=== PATIENT | male | born 1935 | race Caucasian/White ===

== ENCOUNTER 2017-03-31 09:27 | Emergency (ER) | payer MEDICARE ==
[~2017-03-31] VITALS: Ht 175.3 cm; Wt 78.9 kg
[~2017-03-31 09:27] MED LIST: ASPI81CH PO; B-121000 MC2 PO; CHOL10002 PO; Carbidopa-Levo1 EAC1 PO; FINA5 PO; GABA100 PO; GABA600 PO; LEVSOD75 PO; LEVSOD88 PO; MELA3 PO; PRED5 PO; Prinivil10 MG PO; Requip0.5 MG PO; SENN187 PO; TADA10TA PO; TAMS.4ER PO; Ultram50 MG PO; Viagra100 MG PO
[2017-03-31 10:15] LABS: BASOPHILS ABSOLUTE AUTO 0.03 K/mm3 (0.00-0.23); BASOPHILS PERCENT AUTO 0 % (0-2); EOSINOPHILS ABSOLUTE AUTO 0.15 K/mm3 (0.00-0.68); EOSINOPHILS PERCENT AUTO 1 % (0-6); Hematocrit 38.6 % (37.0-53.0); Hemoglobin 12.8 g/dL (13.5-17.5); IMMATURE GRAN ABSOLUTE AUTO 0.06 K/mm3 (0.00-0.10); IMMATURE GRAN PERCENT AUTO 0 % (0-1); LYMPHOCYTES ABSOLUTE AUTO 2.11 K/mm3 (0.84-5.20); LYMPHOCYTES PERCENT AUTO 15 % (21-46); MONOCYTES ABSOLUTE AUTO 1.14 K/mm3 (0.16-1.47); MONOCYTES PERCENT AUTO 8 % (4-13); Mean Corpuscular HGB 29.8 pg (26.0-34.0); Mean Corpuscular HGB Conc 33.2 g/dL (31.5-36.5); Mean Corpuscular Volume 90 fL (80-100); Mean Platelet Volume 11.8 fL (9.1-12.4); NEUTROPHILS ABSOLUTE AUTO 10.57 K/mm3 (1.96-9.15); NEUTROPHILS PERCENT AUTO 75 % (41-73); Platelet Count 177 K/mm3 (150-400); RDW Coefficient Variation 14.5 % (11.7-14.2); Red Blood Cell Count 4.29 M/mm3 (4.30-5.90); White Blood Cell Count 14.06 K/mm3 (4.00-11.30)
[2017-03-31 10:33] LABS: Alanine Aminotransfer (ALT/SGP 16 U/L (12-78); Albumin, Blood 2.5 g/dL (3.4-5.0); Albumin/Globulin Ratio 0.6 (0.8-1.8); Alk Phos 77 U/L (50-136); Anion Gap 8 mmol/L (6-16); Aspartate Aminotrans (AST/SGOT 14 U/L (12-37); Bilirubin, Total 0.4 mg/dL (0.1-1.0); Blood Urea Nitrogen 17 mg/dL (8-24); Bun/Creatinine Ratio 14.2 (12.0-20.0); CO2, Blood 24 mmol/L (21-32); Calcium, Blood 8.7 mg/dL (8.5-10.1); Chloride, Blood 104 mmol/L (98-108); Globulin, Blood 4.3 g/dL (2.2-4.0); Glomerular Filtration Rate >60 (60-); Glucose, Blood 138 mg/dL (70-99); Potassium, Blood 3.6 mmol/L (3.5-5.5); Sodium, Blood 136 mmol/L (136-145); Total Protein, Blood 6.8 g/dL (6.4-8.2)
[2017-03-31 11:51] LABS: Troponin I <0.015 ng/mL (0.000-0.040)
[2017-03-31] MEDS ORDERED: LEVFLO500 PO (12:52)
[2017-03-31] MEDS ORDERED: PROM25 PO (12:53)
== END 2017-03-31 13:49 | disposition home or self-care (01) ==
LOC: ER 09:27
PROVIDERS: Emergency Medicine
DX: J18.9 Pneumonia, unspecified organism (principal); R10.9 Unspecified abdominal pain; R11.2 Nausea with vomiting, unspecified; Z79.899 Other long term (current) drug therapy; Z79.52 Long term (current) use of systemic steroids; Z79.82 Long term (current) use of aspirin
CPT/HCPCS: 36415; 71046; 80053; 83690; 84484; 85025; 93005; 93010; 96361; 96365; 99283; J0696; J7030

== ENCOUNTER 2018-10-03 14:41 | Observation (INO) | payer MEDICARE ==
[~2018-10-03] VITALS: Ht 170.2 cm; Wt 78.3 kg
[~2018-10-03 14:41] MED LIST changes: +LEVFLO500 PO; -LEVSOD88 PO; +PROM25 PO; +Synthroid88 MCG PO
[2018-10-03 15:07] LABS: BASOPHILS ABSOLUTE AUTO 0.05 K/mm3 (0.00-0.23); BASOPHILS PERCENT AUTO 1 % (0-2); EOSINOPHILS PERCENT AUTO 3 % (0-6); Hemoglobin 12.8 g/dL (13.5-17.5); IMMATURE GRAN ABSOLUTE AUTO 0.03 K/mm3 (0.00-0.10); IMMATURE GRAN PERCENT AUTO 0 % (0-1); LYMPHOCYTES ABSOLUTE AUTO 2.36 K/mm3 (0.84-5.20); LYMPHOCYTES PERCENT AUTO 25 % (21-46); MONOCYTES ABSOLUTE AUTO 0.79 K/mm3 (0.16-1.47); MONOCYTES PERCENT AUTO 8 % (4-13); Mean Corpuscular HGB 31.1 pg (26.0-34.0); Mean Corpuscular HGB Conc 32.8 g/dL (31.5-36.5); Mean Corpuscular Volume 95 fL (80-100); Mean Platelet Volume 12.3 fL (9.1-12.4); NEUTROPHILS ABSOLUTE AUTO 5.97 K/mm3 (1.96-9.15); NEUTROPHILS PERCENT AUTO 63 % (41-73); Platelet Count 170 K/mm3 (150-400); RDW Coefficient Variation 12.7 % (11.7-14.2); RDW Standard Deviation 44.5 fL (35.1-46.3); Red Blood Cell Count 4.11 M/mm3 (4.30-5.90)
[2018-10-03] MEDS ORDERED: Hytrin2 MG PO (15:20)
[2018-10-03] MEDS ORDERED: LIDO700A20 TOP (15:20)
[2018-10-03] MEDS ORDERED: SILD50TA PO (15:21)
[2018-10-03] MEDS ORDERED: Ropinirole HCl1 MG PO (15:22)
[2018-10-03] MEDS ORDERED: CLON.5 PO (15:22)
[2018-10-03 15:27] LABS: Albumin, Blood 3.4 g/dL (3.4-5.0); Albumin/Globulin Ratio 1.1 (0.8-1.8); Bilirubin, Total 0.2 mg/dL (0.1-1.0); Bun/Creatinine Ratio 19.4 (12.0-20.0); Calcium, Blood 8.6 mg/dL (8.5-10.1); Creatinine, Blood 1.44 mg/dL (0.60-1.20); Globulin, Blood 3.1 g/dL (2.2-4.0); Potassium, Blood 4.4 mmol/L (3.5-5.5); Total Protein, Blood 6.5 g/dL (6.4-8.2)
[2018-10-03] MEDS ORDERED: MUSE500 MCG UR (16:00)
[2018-10-03] MEDS ORDERED: GLUC500 PO (16:10)
[2018-10-03 16:27] LABS: Source, Urine Clean Catch
[2018-10-03 16:37] LABS: Bilirubin, Urine Neg (Neg); Blood, Urine Neg (Neg); Glucose Qualitative, Urine Neg (Neg); Ketones, Urine Neg (Neg); Leukocyte Esterase, Urine 1+ (Neg); Nitrite, Urine Neg (Neg); Protein, Urine Neg (Neg); Specific Gravity, Urine 1.015 (1.003-1.022); Urobilinogen, Urine NORM (Normal)
[2018-10-03 16:43] LABS: Appearance, Urine Hazy (Clear); Color, Urine Yellow (P-Yellow)
[2018-10-03 16:46] LABS: Bacteria Few /hpf; Mucus Light (0-Heavy); Red Blood Cells, Urine 0-2 /hpf (0-2); Squamous Epithelial Cells Not Seen /hpf (Few); White Blood Cells, Urine 0-2 /hpf (0-5)
--- NOTE | 2018-10-04 02:47 | NUR ---
ASSUMED CARE OF PATIENT AT APPROXIMATELY 2054 FROM ED JACK MARTÍNEZ. PATIENT ARRIVED TO UNIT VIA STRETCHER; TRANSFER FROM ED TO PCU INDEPENDENTLY; PATIENT REPORTS "I DONT KNOW WHY I AM EVEN HERE"; BUT LAUGHS AND REPORTS HIS MADE HIM COME INTO THE HOSPITAL. PATIENT ALERT AND ORIENTED X4. PATIENT DENIES PAIN, NUMBNESS, TINGLING, DIZZINESS AND NAUSESA. PATIENT USES URINAL IN BED. PATIENT BEDREST FOR NOW; ECHO IN AM. ADMISSION COMPLETE. NSR W/ PACS ON TELE; OXYGEN SATURATION ABOVE 90% ON ROOM AIR. LR INFUSING PER ORDER INTO PIV. SLEEPING IN RECLINER BEDSIDE. PATIENT CURRENTLY RESTING IN BED; CALL LIGHT IN REACH; BED IN LOWEST POSISTION; WILL CONTINUE TO MONITOR AND ASSESS UNTIL END OF SHIFT.
[2018-10-04 04:35] LABS: Anion Gap 5 mmol/L (6-16); Blood Urea Nitrogen 22 mg/dL (8-24); Bun/Creatinine Ratio 20.2 (12.0-20.0); CO2, Blood 25 mmol/L (21-32); Calcium, Blood 8.1 mg/dL (8.5-10.1); Chloride, Blood 113 mmol/L (98-108); Creatinine, Blood 1.09 mg/dL (0.60-1.20); Glomerular Filtration Rate >60 (60-); Glucose, Blood 98 mg/dL (70-99); Potassium, Blood 4.2 mmol/L (3.5-5.5); Sodium, Blood 143 mmol/L (136-145)
--- NOTE | 2018-10-04 06:22 | NUR ---
NO ACUTE CHANGES TO REPORT. PATIENT SLEPT ABOUT SEVEN HOURS LAST NIGHT. VSS. WILL CONTINUE TO MONITOR AND ASSESS UNTIL END OF SHIFT.
--- NOTE | 2018-10-04 10:41 | NUR ---
echocardiogram completed
--- NOTE | 2018-10-04 15:42 | NUR ---
DISCHARGE PT EDUCATED ON AND RECEIVED PRINTED DISCHARGE INSTRUCTIONS AND VERBALIZED AN UNDERSTANDING. NO NEW RX. IV DC'D. PT REPORTS HAVING A FOLLOW UP SCHEDULED WITH PCP THIS WEEK. PT LEFT WITH ALL PERSONAL BELONGINGS WITH AT SIDE.
== END 2018-10-04 15:41 | disposition home or self-care (01) ==
LOC: ER 14:41 → ERHOLD 14:42 → PCU 20:45
PROVIDERS: Physician Assistant; ADMIT Internal Medicine
DX: I95.9 Hypotension, unspecified (principal); N17.9 Acute kidney failure, unspecified; T46.4X5A Adverse effect of angiotensin-converting-enzyme inhibitors, initial encounter; E03.9 Hypothyroidism, unspecified; N40.0 Benign prostatic hyperplasia without lower urinary tract symptoms; G25.81 Restless legs syndrome; R01.1 Cardiac murmur, unspecified; I08.0 Rheumatic disorders of both mitral and aortic valves; Z79.899 Other long term (current) drug therapy; Z79.82 Long term (current) use of aspirin; Z79.52 Long term (current) use of systemic steroids
CPT/HCPCS: 36415; 71046; 80048; 80053; 81001; 83036; 83605; 83880; 84484; 85025; 87086; 93005; 93010; 93306; 96360; 96361; 96372; 99285-25; G0378; J1650; J7030; J7120

== ENCOUNTER 2020-09-03 07:19 | Emergency (ER) | payer MEDICARE ==
[~2020-09-03] VITALS: Ht 172.7 cm; Wt 73.9 kg
[~2020-09-03 07:19] MED LIST changes: +CLON.5 PO; +GLUC500 PO; +Hytrin2 MG PO; +LIDO700A20 TOP; +MUSE500 MCG UR; +Ropinirole HCl1 MG PO; +SILD50TA PO
== END 2020-09-03 09:55 | disposition home or self-care (01) ==
LOC: ER 07:19
DX: K43.6 Other and unspecified ventral hernia with obstruction, without gangrene (principal); Z79.52 Long term (current) use of systemic steroids; Z79.899 Other long term (current) drug therapy
CPT/HCPCS: 76857; 99284-25

== ENCOUNTER 2023-03-25 17:33 | Inpatient (IN) | payer MEDICARE ==
[~2023-03-25] VITALS: Ht 180.3 cm; Wt 84.8 kg
[2023-03-25 18:38] LABS: BASOPHILS ABSOLUTE AUTO 0.04 K/mm3 (0.00-0.23); BASOPHILS PERCENT AUTO 1 % (0-2); EOSINOPHILS ABSOLUTE AUTO 0.01 K/mm3 (0.00-0.68); EOSINOPHILS PERCENT AUTO 0 % (0-6); Hematocrit 39.7 % (37.0-53.0); Hemoglobin 13.7 g/dL (13.5-17.5); IMMATURE GRAN ABSOLUTE AUTO 0.04 K/mm3 (0.00-0.10); IMMATURE GRAN PERCENT AUTO 1 % (0-1); LYMPHOCYTES ABSOLUTE AUTO 0.62 K/mm3 (0.84-5.20); LYMPHOCYTES PERCENT AUTO 8 % (21-46); MONOCYTES ABSOLUTE AUTO 0.71 K/mm3 (0.16-1.47); MONOCYTES PERCENT AUTO 9 % (4-13); Mean Corpuscular HGB 31.4 pg (26.0-34.0); Mean Corpuscular HGB Conc 34.5 g/dL (31.5-36.5); Mean Corpuscular Volume 91 fL (80-100); Mean Platelet Volume 12.1 fL (9.1-12.4); NEUTROPHILS ABSOLUTE AUTO 6.58 K/mm3 (1.96-9.15); NEUTROPHILS PERCENT AUTO 82 % (41-73); Platelet Count 144 K/mm3 (150-400); RDW Coefficient Variation 13.1 % (11.7-14.2); RDW Standard Deviation 43.7 fL (35.1-46.3); Red Blood Cell Count 4.36 M/mm3 (4.30-5.90)
[2023-03-25 19:01] LABS: Albumin, Blood 3.3 g/dL (3.4-5.0); Albumin/Globulin Ratio 0.9 (0.8-1.8); Bilirubin, Total 0.4 mg/dL (0.1-1.0); Bun/Creatinine Ratio 13.6 (12.0-20.0); Calcium, Blood 8.2 mg/dL (8.5-10.1); Creatinine, Blood 1.25 mg/dL (0.60-1.20); Globulin, Blood 3.7 g/dL (2.2-4.0); Potassium, Blood 4.1 mmol/L (3.5-5.5)
[2023-03-25 19:36] LABS: Influenza B, PCR NEGATIVE (NEGATIVE); Resp Syncytial Virus, PCR NEGATIVE (NEGATIVE); SARS-Cov-2 (COVID-19) PCR, MMC NEGATIVE (NEGATIVE)
[2023-03-25 19:49] LABS: Influenza A, PCR POSITIVE (NEGATIVE)
[2023-03-25 22:44] LABS: Anti-Xa UFH, PHA Monitoring <0.10 IU/mL; International Normalized Ratio 1.08; Prothrombin Time Results 11.3 Sec (9.7-11.5)
[2023-03-25 22:47] VITALS: BP 124/63
[2023-03-25 23:00] VITALS: BP 117/60
[2023-03-26] VITALS (34 sets, daily range): BP systolic 83–151; BP diastolic 43–107
[2023-03-26 02:21] LABS: Hematocrit 43.4 % (37.0-53.0); Hemoglobin 14.5 g/dL (13.5-17.5); Mean Corpuscular HGB 31.3 pg (26.0-34.0); Mean Corpuscular HGB Conc 33.4 g/dL (31.5-36.5); Mean Corpuscular Volume 94 fL (80-100); Mean Platelet Volume 12.5 fL (9.1-12.4); Platelet Count 144 K/mm3 (150-400); RDW Coefficient Variation 13.4 % (11.7-14.2); Red Blood Cell Count 4.63 M/mm3 (4.30-5.90); White Blood Cell Count 12.19 K/mm3 (4.00-11.30)
[2023-03-26 02:24] LABS: Base Excess Venous -2.9 mmol/L; Bicarbonate Venous 21.5 mmol/L (24.0-30.0); pH Blood Venous 7.31 (7.34-7.37)
[2023-03-26 02:53] LABS: Bun/Creatinine Ratio 14.6 (12.0-20.0); Creatinine, Blood 1.37 mg/dL (0.60-1.20); Potassium, Blood 4.3 mmol/L (3.5-5.5)
--- NOTE | 2023-03-26 06:33 | NUR ---
Admit/ End of shift note. Pt arrived from the ED into PCU19. Pt was oriented to room and call light system. On arrival to the unit Pt was on 3L. At approx 0230, Pt was having increase WOB, RR 30's, requiring O2 increase. RT was requested. RT performed some NT suction which seemed to help manage some of the secretions. Hour long neb was given which also seemed to help open up. PCU and ICU charge at bedside to help with interventions. MDs were called to the bedside for additional orders. CXR, EKG, additional labs completed. BiPAP was placed. IV lasix given x1 with fair output. Pt has remained on the BiPAP since respiratory episode. BP on the softer side, pressures cycling regularly. Hep gtt infusing. Trops continue to be trended. Pt currently denies CP. Pt has been NPO since midnight for possible heart cath. Pt is able to make needs known, call light is within reach. was phoned during respiratory episode, message left.
--- NOTE | 2023-03-26 07:59 | NUR ---
Dr. Washington here, pt signed consent form for angiogram. It is on the front of the chart. Pt is still on bipap. NPO for possible angiogram today.
--- NOTE | 2023-03-26 08:01 | NUR ---
Notified pharmacist Katie that the heparin gtt is still off due to possible angiogram.
--- NOTE | 2023-03-26 09:30 | NUR ---
Pt taken down to heart center for angiogram.
--- NOTE | 2023-03-26 09:48 | NUR ---
Call to pt's Margret to give her update on pt's condition. Pt is still in heart center. She is coming in to the hospital this morning.
--- NOTE | 2023-03-26 10:13 | NUR ---
Pt's and son are in the unit; waiting in the hallway. Updated them on pt's procedure and expectations following the angiogram.
--- NOTE | 2023-03-26 10:25 | NUR ---
Deepika report from Rashard Nicholson RN from [facility]. The pt is returning to [facility] now.
--- NOTE | 2023-03-26 10:32 | NUR ---
Dr. Washington here talking with pt's and son in the hallway.
--- NOTE | 2023-03-26 12:19 | NUR ---
Notified Dr. Washington of pt's conversion to afib , rate 103-110, BP stable, and no dyspnea. Pt is tolerating off bipap presently to eat lunch, on 4 l/min n.c. delivery. New order received for metoprolol succinate, d/c'd the metoprolol tartrate per Dr. Washington.
--- NOTE | 2023-03-26 13:36 | NUR ---
2 CC AIR FROM TR BAND AT THIS TIME.
--- NOTE | 2023-03-26 14:01 | NUR ---
Additional 3 cc air removed from TR band. Right radial site remains without bleeding, swelling, nor s/s hematoma. Pt denies any pain/discomfort in the right upper extremity. He is having RLS symptoms, but ordered glucosamine was admininstered, and hoping for some relief. Vital signs are stable. Pt remains in atrial fibrillation, rate 90s-115 bpm.
--- NOTE | 2023-03-26 15:14 | NUR ---
Restarted heparin gtt at 12 u/kg/hour per Dana Nicholson RPh. TR band fully deflated.
--- NOTE | 2023-03-26 15:19 | NUR ---
Pt has no relief from RLS with 500 mg glucosamine. Message left for Dr. Murrieta; pt says that he takes 0.5 mg of pramipexole also for relief at home.
--- NOTE | 2023-03-26 16:19 | NUR ---
TR band is fully recovered and the right wrist site has a very small flat purple bruise at the insertion point. TR band removed, site cleansed with rubbing alcohol and sterile tegederm placed over it. White immobilizer board placed back on the wrist; pt reminded of the activity restrictions on the wrist. He converted back to sinus rhythm. Vital signs are stable, and he denies any symptomts except for feeling a little like he can't catch his breath, but that it is much better than this morning. He does not have any visible respiratory distress nor dyspnea. RR 14/min, spo2 96% on 3 l/min at rest. He did have some diaphorsis, but nothing else. He is getting a sponge bath now for comfort. Reported this to Dr. Washington. Plan for NPO after midnight for angiogram with Dr. Washington in the morning.
[2023-03-27] VITALS (13 sets, daily range): BP systolic 108–137; BP diastolic 60–116
[2023-03-27 04:55] LABS: BASOPHILS ABSOLUTE AUTO 0.02 K/mm3 (0.00-0.23); BASOPHILS PERCENT AUTO 0 % (0-2); EOSINOPHILS PERCENT AUTO 0 % (0-6); Hematocrit 38.9 % (37.0-53.0); Hemoglobin 13.2 g/dL (13.5-17.5); IMMATURE GRAN PERCENT AUTO 1 % (0-1); LYMPHOCYTES ABSOLUTE AUTO 1.11 K/mm3 (0.84-5.20); LYMPHOCYTES PERCENT AUTO 6 % (21-46); MONOCYTES ABSOLUTE AUTO 0.72 K/mm3 (0.16-1.47); MONOCYTES PERCENT AUTO 4 % (4-13); Mean Corpuscular HGB 31.4 pg (26.0-34.0); Mean Corpuscular HGB Conc 33.9 g/dL (31.5-36.5); Mean Corpuscular Volume 92 fL (80-100); Mean Platelet Volume 12.6 fL (9.1-12.4); NEUTROPHILS ABSOLUTE AUTO 15.71 K/mm3 (1.96-9.15); NEUTROPHILS PERCENT AUTO 89 % (41-73); Platelet Count 125 K/mm3 (150-400); RDW Coefficient Variation 13.6 % (11.7-14.2); RDW Standard Deviation 46.2 fL (35.1-46.3); Red Blood Cell Count 4.21 M/mm3 (4.30-5.90); White Blood Cell Count 17.66 K/mm3 (4.00-11.30)
--- NOTE | 2023-03-27 05:24 | NUR ---
END OF SHIFT NOTE: PT REMAINS ALERT, ORIENTED X4. ABLE TO CALL APPROPRIATELY AND COMMUNICATE NEEDS W/ STAFF. HR CONVERTED FROM AFIB TO SINUS AT APPROX 2050 ON 03/26. HR 60-70'S FOLLOWING CONVERSION. REPEAT EKG COMPLETED FOLLOWING CONVERSION SHOWING SINUS W/ PVC'S. SBP 110-130'S, PT DENIES CHEST PAIN/PRESSURE. SPO2 >92% ON 3L VIA NC. BIPAP AT BEDSIDE BUT NOT USED OVERNIGHT. COUGH NONPRODUCTIVE. PT ABLE TO VOID IN URINAL INDEPENDENTLY, UP TO BSC W/ 1P SBA. MULTIPLE BM'S OVERNIGHT. ANGIO SITE TO R WRIST REMAINS INTACT W/ MINIMAL BLEEDING NOTED. SMALL BRUISE REMAINS IN PLACE AT INSERTION SITE W/O WORSENING OVERNIGHT. WHITE IMMOBILIZER BOARD IN PLACE. PT HAS REMAINED NPO SINCE 0000 ANTICIPATING REPEAT ANGIO THIS AM. HEPARIN GTT INFUSING AT 10 U/KG/HR, MANAGED BY PHARMACY. NO OTHER NEEDS AT THIS TIME. PT IS RESTING IN BED W/ CALL LIGHT IN REACH. BED ALARM ON FOR PT SAFETY. WILL REPORT TO ONCOMING RN.
[2023-03-27 05:29] LABS: Albumin/Globulin Ratio 0.8 (0.8-1.8); Bilirubin, Total 0.3 mg/dL (0.1-1.0); Bun/Creatinine Ratio 27.1 (12.0-20.0); Calcium, Blood 8.2 mg/dL (8.5-10.1); Creatinine, Blood 1.44 mg/dL (0.60-1.20); Globulin, Blood 3.9 g/dL (2.2-4.0); Magnesium, Blood 2.2 mg/dL (1.6-2.4); Potassium, Blood 3.9 mmol/L (3.5-5.5); Total Protein, Blood 6.9 g/dL (6.4-8.2)
--- NOTE | 2023-03-27 08:46 | NUR ---
Verified heparin gtt at the bedside. pt is alert, oriented and on 2 l/min O2. sinus rhythm, 63 bpm with PACs. He reports no discomfort, no pain, except for his restless legs which are "acting up". encouraged him to stand at the bedside or sit on side of bed to march his legs and knees for relief. He usually walks around at home for relief. Call to his Margret this morning at pt's request to update her; no answer, so will attempt to call again later.
--- NOTE | 2023-03-27 09:41 | NUR ---
Call to Margret to give her an update on her 's condition. Plan for angiogram later today.
[2023-03-27 11:10] LABS: HEMOGLOBIN A1C 6.4 % (4.8-5.6)
--- NOTE | 2023-03-27 11:22 | NUR ---
PT IS IN ANGIOGRAM.
--- NOTE | 2023-03-27 13:34 | NUR ---
1310 RETURNED from heart center angiogram. Alert, awake and oriented, pleasantly conversant. No pain/discomfort. States he feels like his breathing is getting better, but not quite back to normal. Given lunch tray and water to drink. Encouraging fluid intake.
--- NOTE | 2023-03-27 14:48 | NUR ---
Pt sitting up in bed, finished lunch and is talking with his daughters in the room. Right radial arterial access site it WNL. TR band is in place, fully inflated. He denies any pain/discomfort. Right hand fingers are pink, capillary refill is brisk, and he denies any numbness/tingling/pain in the right hand/arm. Vital signs have been stable and the pt has remained in sinus rhythm.
--- NOTE | 2023-03-27 16:18 | NUR ---
Noted bruising and soft area of swelling proximal to the TR band, about 3-4 cm area. Arm elevated and pressure applied. Pressure dressing applied with gauze and coban and pt instructed to keep the arm elevated on 2 pillows. He denies any pain on the right upper extremity.
--- NOTE | 2023-03-27 16:21 | NUR ---
oxygen delivery 1 l/min and spo2 97%. O2 turned off.
--- NOTE | 2023-03-27 17:40 | NUR ---
TR band fully deflated. No further evidence of bleeding. Bruising adjacent to TR band is has not grown in size. Pt states tender to touch, but otherwise it is WNL. He is keeping the right arm elevated on 2 pillows.
--- NOTE | 2023-03-27 17:42 | NUR ---
Pt is weaned off of oxygen. spo2 96% on room air at rest.
--- NOTE | 2023-03-27 18:43 | NUR ---
TR Band removed. ARea cleaned with rubbing alcohol, covered with sterile tegederm and immobilizer board placed on wrist. Education to patient to continue activity restrictions to prevent complications from bleeding of the site. Explained that he needs to keep the immobilizer board on for 24 hours and after that he can shower, remove the dressing, and wash the area with soap and water. PT verbalized understanding.
[2023-03-28 00:20] VITALS: BP 133/78
[2023-03-28 03:13] VITALS: BP 142/77
[2023-03-28 04:53] LABS: BASOPHILS ABSOLUTE AUTO 0.01 K/mm3 (0.00-0.23); BASOPHILS PERCENT AUTO 0 % (0-2); EOSINOPHILS PERCENT AUTO 0 % (0-6); Hematocrit 38.5 % (37.0-53.0); Hemoglobin 12.9 g/dL (13.5-17.5); IMMATURE GRAN ABSOLUTE AUTO 0.09 K/mm3 (0.00-0.10); IMMATURE GRAN PERCENT AUTO 1 % (0-1); LYMPHOCYTES ABSOLUTE AUTO 0.97 K/mm3 (0.84-5.20); LYMPHOCYTES PERCENT AUTO 5 % (21-46); MONOCYTES ABSOLUTE AUTO 0.57 K/mm3 (0.16-1.47); MONOCYTES PERCENT AUTO 3 % (4-13); Mean Corpuscular HGB Conc 33.5 g/dL (31.5-36.5); Mean Corpuscular Volume 93 fL (80-100); Mean Platelet Volume 12.7 fL (9.1-12.4); NEUTROPHILS ABSOLUTE AUTO 16.34 K/mm3 (1.96-9.15); NEUTROPHILS PERCENT AUTO 91 % (41-73); Platelet Count 116 K/mm3 (150-400); RDW Coefficient Variation 13.3 % (11.7-14.2); RDW Standard Deviation 45.7 fL (35.1-46.3); Red Blood Cell Count 4.16 M/mm3 (4.30-5.90); White Blood Cell Count 17.98 K/mm3 (4.00-11.30)
[2023-03-28 05:15] LABS: Anion Gap 8 mmol/L (6-16); Blood Urea Nitrogen 43 mg/dL (8-24); Bun/Creatinine Ratio 33.6 (12.0-20.0); CO2, Blood 25 mmol/L (21-32); Calcium, Blood 8.1 mg/dL (8.5-10.1); Chloride, Blood 107 mmol/L (98-108); Creatinine, Blood 1.28 mg/dL (0.60-1.20); Glomerular Filtration Rate 54 (60-); Glucose, Blood 176 mg/dL (70-99); Magnesium, Blood 2.4 mg/dL (1.6-2.4); Phosphorus, Blood 3.6 mg/dL (2.5-4.9); Potassium, Blood 3.8 mmol/L (3.5-5.5); Sodium, Blood 140 mmol/L (136-145)
--- NOTE | 2023-03-28 05:18 | NUR ---
END OF SHIFT NOTE: PT REMAINS ALERT, ORIENTED X4. ABLE TO CALL APPROPRIATELY AND COMMUNICATE NEEDS W/ STAFF. HR 60-70'S, SINUS ON TELE. SBP 120-140'S, PT DENIES CHEST PAIN/PRESSURE. SPO2 >92% ON RA. COUGH REMAINS NONPRODUCTIVE. ANGIO SITE TO R WRIST REMAINS INTACT W/ MINIMAL BLEEDING NOTED. BRUISING REMAINS IN PLACE PROXIMAL TO INSERTION SITE W/O WORSENING OVERNIGHT. SOFT, TENDER TO THE TOUCH. WHITE IMMOBILIZER BOARD IN PLACE. PT HAS TOLERATED PO INTAKE. PT ABLE TO VOID IN URINAL INDEPENDENTLY, NO BM'S OVERNIGHT. NO OTHER NEEDS AT THIS TIME. PT IS RESTING IN BED W/ CALL LIGHT IN REACH. WILL REPORT TO ONCOMING RN.
[2023-03-28 07:19] VITALS: BP 127/76
--- NOTE | 2023-03-28 07:26 | NUR ---
ASSUMED CARE: PT CALLED FOR ASSISTANCE AFTER SHOWER. AMBULATED BACK TO BED WITH MINIMAL ASSISTANCE. NSR ON TELE IN THE 60S. ON RA. DENIES CP. SCANT AMOUNT OF BLOOD TO ANGIO SITE, NOT WORSENING. ARM BOARD IN PLACE. CALL LIGHT IN REACH. DENIES FURTHER NEEDS OR CONCERNS AT THIS TIME.
--- NOTE | 2023-03-28 08:55 | NUR ---
DR LOUIS CAME TO BEDSIDE AND DISCUSSED PT'S STATUS WITH PT AND FAMILY. PLANS TO DC TODAY. AWARE OF RUNS OF ECTOPY ON TELE THAT PT WAS ASYMPTOMATIC WITH
[2023-03-28] MEDS ORDERED: ASPI81CH PO (11:48)
[2023-03-28] MEDS ORDERED: ATOR40TA PO (11:48)
[2023-03-28] MEDS ORDERED: AZIT500 PO (11:49)
[2023-03-28] MEDS ORDERED: CLOP75 PO (11:49)
[2023-03-28] MEDS ORDERED: FURO20 PO (11:49)
[2023-03-28] MEDS ORDERED: METO25ER PO (11:54)
[2023-03-28] MEDS ORDERED: PRED20 PO (11:54)
[2023-03-28] MEDS ORDERED: PRAM.5 PO (11:54)
[2023-03-28] MEDS ORDERED: AMOCLA875 PO (11:55)
--- NOTE | 2023-03-28 12:48 | NUR ---
DISCHARGE: IV'S DC'D WNL. PT GIVEN INSTRUCTIONS REGARDING MEDICATION, RADIAL SITE PRECAUTIONS, AND FOLLOW UP APPOINTMENTS. [facility]QUEST AND PHONE NUMBERS PROVIDED FOR FURTHER QUESTIONS. DENIED FURTHER QUESTIONS AT THIS TIME. ESCORTED OUT VIA WHEEL CHAIR BY HOSPITAL STAFF.
== END 2023-03-28 12:59 | disposition home or self-care (01) | DRG 321 ==
LOC: ER 17:33 → PCU 22:05
PROVIDERS: Emergency Medicine; Family Medicine; Nurse Practitioner Acute Care; ADMIT Internal Medicine
PROC: 5A09357 Assistance with Respiratory Ventilation, Less than 24 Consecutive Hours, Continuous Positive Airway Pressure (ICD-10-PCS; 2023-03-26)
PROC: B2111ZZ Fluoroscopy of Multiple Coronary Arteries using Low Osmolar Contrast (ICD-10-PCS; 2023-03-26)
PROC: 027136Z Dilation of Coronary Artery, Two Arteries with Three Drug-eluting Intraluminal Devices, Percutaneous Approach (ICD-10-PCS; principal; 2023-03-27)
PROC: B241ZZ3 Ultrasonography of Multiple Coronary Arteries, Intravascular (ICD-10-PCS; 2023-03-27)
DX: I21.4 Non-ST elevation (NSTEMI) myocardial infarction (principal); J96.01 Acute respiratory failure with hypoxia; N17.9 Acute kidney failure, unspecified; I25.10 Atherosclerotic heart disease of native coronary artery without angina pectoris; E87.70 Fluid overload, unspecified; J10.1 Influenza due to other identified influenza virus with other respiratory manifestations; Z66 Do not resuscitate; E78.5 Hyperlipidemia, unspecified; R73.9 Hyperglycemia, unspecified; N40.0 Benign prostatic hyperplasia without lower urinary tract symptoms; E03.9 Hypothyroidism, unspecified; G25.81 Restless legs syndrome; I44.7 Left bundle-branch block, unspecified; N18.9 Chronic kidney disease, unspecified; D69.6 Thrombocytopenia, unspecified; I12.9 Hypertensive chronic kidney disease with stage 1 through stage 4 chronic kidney disease, or unspecified chronic kidney disease; Z79.890 Hormone replacement therapy
CPT/HCPCS: 0241U; 31720; 36415; 71045; 71046; 76937; 80048; 80053; 80069; 82803; 83036; 83735; 83880; 84100; 84145; 84484; 85025; 85027; 85347; 85520; 85610; 92978; 93005; 93010; 93454; 94644; 94660; 94664; 94760; 94762; 96361; 96365; 99152; 99153; 99285-25; A9270; C1725; C1753; C1769; C1874; C1887; C1894; C8929; C9600; J0456; J0696; J1644; J1940; J2250; J2930; J3010; J7030; J7050; J7060; Q9957; Q9967

== ENCOUNTER 2023-05-08 17:44 | Inpatient (IN) | payer MEDICARE ==
[~2023-05-08] VITALS: Ht 170.2 cm; Wt 84.4 kg
[~2023-05-08 17:44] MED LIST changes: -MELATONIN5 M1 PO; -SPIR25 PO
[2023-05-08] MEDS ORDERED: Furosemide 10 MG / ML 2ML Vial IV ONE (19:40)
[2023-05-08] MEDS ORDERED: CLOP75 PO (21:18)
[2023-05-08 22:32] VITALS: BP 135/86
[2023-05-08] MEDS ORDERED: FLU VACC QS2023-24(6MOS UP)/PF 60 MCG/0.5 ML SYRINGE IM ONE (23:20)
--- NOTE | 2023-05-08 23:22 | NUR ---
ADMIT NOTE HANDOFF RECEIVED FROM HUMAN CAPITAL MANAGERJACK SHAFFER. PT ARRIVED TO FLOOR VIA [facility]IS[facility]. PT ORIENTED TO UNIT. PERSONAL POSSESSIONS WITH PT. PATIENT KEEPER IS OFFLINE WHEN PT ARRIVED TO FLOOR. TELEMETRY IN PLACE AND MONITORING. STRICT I&O'S. 1200 ML FLUID RESTRICTION. CALL BUTTON WITHIN REACH
[2023-05-08] MEDS ORDERED: Furosemide 10 MG/ML 4ML Vial IV SCH (23:45)
[2023-05-08] MEDS ORDERED: Gabapentin 300 MG Cap PO SCH (23:50)
--- NOTE | 2023-05-09 00:08 | NUR ---
CALLED HOSPITALIST INFORMED HIM OF 12 BEAT RUN OF V-TACH. NO S/SX FROM PT. HE DENIES CP. NEW ORDERS FOR LABS ENTERED. SEE ORDERS.
[2023-05-09 04:06] VITALS: BP 132/87
[2023-05-09 04:25] LABS: BASOPHILS ABSOLUTE AUTO 0.06 K/mm3 (0.00-0.23); BASOPHILS PERCENT AUTO 1 % (0-2); EOSINOPHILS ABSOLUTE AUTO 0.15 K/mm3 (0.00-0.68); EOSINOPHILS PERCENT AUTO 2 % (0-6); Hematocrit 34.3 % (37.0-53.0); Hemoglobin 11.6 g/dL (13.5-17.5); IMMATURE GRAN ABSOLUTE AUTO 0.01 K/mm3 (0.00-0.10); IMMATURE GRAN PERCENT AUTO 0 % (0-1); LYMPHOCYTES ABSOLUTE AUTO 2.43 K/mm3 (0.84-5.20); LYMPHOCYTES PERCENT AUTO 32 % (21-46); MONOCYTES ABSOLUTE AUTO 0.87 K/mm3 (0.16-1.47); MONOCYTES PERCENT AUTO 12 % (4-13); Mean Corpuscular HGB 30.5 pg (26.0-34.0); Mean Corpuscular HGB Conc 33.8 g/dL (31.5-36.5); Mean Corpuscular Volume 90 fL (80-100); Mean Platelet Volume 11.2 fL (9.1-12.4); NEUTROPHILS ABSOLUTE AUTO 4.03 K/mm3 (1.96-9.15); NEUTROPHILS PERCENT AUTO 53 % (41-73); Platelet Count 223 K/mm3 (150-400); RDW Coefficient Variation 13.6 % (11.7-14.2); RDW Standard Deviation 45.1 fL (35.1-46.3); White Blood Cell Count 7.55 K/mm3 (4.00-11.30)
--- NOTE | 2023-05-09 04:29 | NUR ---
SHIFT SUMMARY ADMITTED FOR CHF/ELEVATED TROPONINS. FULL CODE. PLAN IS TO DIURESE. MONITOR LABS. TELEMETRY: NSR @ 83 BPM. 1 ASSIST TO BSC DUE TO DYSPNEA W/EXERTION. WE ARE TRENDING TROPONINS. A&O X4. HX: NSTEMI - 2 STENTS, PNEUMONIA, CHF. HE IS A&O X4. HE IS ON RA. PE STUDY WAS NEGATIVE FOR CLOTS. HE IS ON A 1200 ML FLUID RESTRICTION. STRICT I&O'S.
[2023-05-09 04:50] LABS: Albumin/Globulin Ratio 0.8 (0.8-1.8); Bilirubin, Total 0.5 mg/dL (0.1-1.0); Bun/Creatinine Ratio 12.6 (12.0-20.0); Calcium, Blood 8.8 mg/dL (8.5-10.1); Creatinine, Blood 1.03 mg/dL (0.60-1.20); Globulin, Blood 3.6 g/dL (2.2-4.0); Magnesium, Blood 2.1 mg/dL (1.6-2.4); Potassium, Blood 3.6 mmol/L (3.5-5.5); Total Protein, Blood 6.6 g/dL (6.4-8.2)
[2023-05-09] MEDS ORDERED: Levothyroxine Sodium 0.088 MG Tab PO SCH (06:00)
[2023-05-09 07:34] VITALS: BP 112/64
[2023-05-09] MEDS ORDERED: MELATONIN5 M1 PO ×2 (07:47)
[2023-05-09] MEDS ORDERED: Hytrin2 MG PO (07:51)
[2023-05-09] MEDS ORDERED: Metoprolol Succinate 25 MG TABCR PO SCH (09:00)
[2023-05-09] MEDS ORDERED: Furosemide 10 MG/ML 4ML Vial IV SCH (09:00)
[2023-05-09] MEDS ORDERED: Aspirin 81 MG TabEC PO SCH (09:00)
[2023-05-09] MEDS ORDERED: Finasteride 5 MG Tab PO SCH (09:00)
[2023-05-09] MEDS ORDERED: Atorvastatin 40 MG Tab PO SCH (09:00)
[2023-05-09] MEDS ORDERED: Enoxaparin 40 MG/0.4 ML SYR SC SCH ×2 (09:00)
[2023-05-09] MEDS ORDERED: Clopidogrel Bisulfate 75 MG Tab PO SCH (09:00)
[2023-05-09] MEDS ORDERED: Spironolactone 25 MG Tab PO SCH (14:00)
[2023-05-09 15:00] VITALS: BP 131/94
[2023-05-09 15:42] LABS: Bun/Creatinine Ratio 12.5 (12.0-20.0); Creatinine, Blood 1.12 mg/dL (0.60-1.20); Potassium, Blood 3.7 mmol/L (3.5-5.5)
[2023-05-09] MEDS ORDERED: Furosemide 10 MG / ML 2ML Vial IV SCH (18:00)
--- NOTE | 2023-05-09 18:25 | NUR ---
SHIFT SUMMARY: PATIENT A/OX4, ANSWER TO QUESTIONS APPROPRIATELY AND ABLE TO MAKE NEEDS KNOWN. PATIENT DENIES CP/PRESSURE, N/V, DIZZINESS, SOB AND GENERALIZED PAIN. PATIENT ON TELE, SR HR IN THE HIGH 70'S BPM. PATIENT RECEIVED IV LASIX AND PO ALDACTONE PER ORDER. PATIENT IS CONTINENCE OF BLADDER, USES URINAL INDEPENDENTLY c 2,075 MLS TOTAL CLEAR YELLOW URINE OUTPUT THIS SHIFT. PATIENT HAD PT/OT EVAL TODAY, OT RECOMMENDED DC'D HOME c NO FURTHER F/U TREATMENT NEEDED. PATIENT AMBULATES IN ROOM INDEPENDENTLY. PATIENT HAS NO COMPLAINTS OR DENIES NEW CONCERNED THIS SHIFT. VITAL SIGNS REVIEWED. PIV TO LAC SALINE LOCKED. CALL LIGHT IN REACH.
[2023-05-09 20:06] VITALS: BP 124/67
[2023-05-09] MEDS ORDERED: Pramipexole DI-HCL 0.25 MG Tab PO SCH (21:00)
[2023-05-10 04:31] VITALS: BP 125/67
[2023-05-10 05:55] LABS: BASOPHILS ABSOLUTE AUTO 0.07 K/mm3 (0.00-0.23); BASOPHILS PERCENT AUTO 1 % (0-2); EOSINOPHILS ABSOLUTE AUTO 0.22 K/mm3 (0.00-0.68); EOSINOPHILS PERCENT AUTO 3 % (0-6); Hematocrit 37.6 % (37.0-53.0); Hemoglobin 12.5 g/dL (13.5-17.5); IMMATURE GRAN ABSOLUTE AUTO 0.02 K/mm3 (0.00-0.10); IMMATURE GRAN PERCENT AUTO 0 % (0-1); LYMPHOCYTES PERCENT AUTO 33 % (21-46); MONOCYTES ABSOLUTE AUTO 0.91 K/mm3 (0.16-1.47); MONOCYTES PERCENT AUTO 14 % (4-13); Mean Corpuscular HGB 30.6 pg (26.0-34.0); Mean Corpuscular HGB Conc 33.2 g/dL (31.5-36.5); Mean Corpuscular Volume 92 fL (80-100); Mean Platelet Volume 12.2 fL (9.1-12.4); NEUTROPHILS ABSOLUTE AUTO 3.16 K/mm3 (1.96-9.15); NEUTROPHILS PERCENT AUTO 48 % (41-73); Platelet Count 228 K/mm3 (150-400); RDW Coefficient Variation 13.4 % (11.7-14.2); Red Blood Cell Count 4.09 M/mm3 (4.30-5.90); White Blood Cell Count 6.58 K/mm3 (4.00-11.30)
--- NOTE | 2023-05-10 06:11 | NUR ---
SHIFT SUMMARY NOC PT A/O X 4. PLEASANT AND COOPERATIVE WITH CARE. NO ACUTE EVENTS TO REPORT. PT ON FLUID RESTRICTION FOR CHF EXCACERBATION. VSS. ON TELE RUNNING SINUS RHYTHM/BBB @ 70 BPM. PT EXPECTED TO DISCHARGE HOME WITHOUT FURTHER TREATMENT. PT IS CURRENTLY RESTING WITH BED IN LOWEST POSITION, AND CALL LIGHT WITHIN REACH.
[2023-05-10 06:25] LABS: Bun/Creatinine Ratio 14.4 (12.0-20.0); Creatinine, Blood 1.25 mg/dL (0.60-1.20); Potassium, Blood 3.5 mmol/L (3.5-5.5)
[2023-05-10 07:27] VITALS: BP 126/69
[2023-05-10] MEDS ORDERED: SPIR25 PO ×2 (12:59)
--- NOTE | 2023-05-10 14:00 | NUR ---
DISCHARGE SUMMARY PATIENT DISCHARGED THIS SHIFT, AMBULATORY WITH TO DRIVE. IV REMOVED PRIOR TO D/C, NO COMPLICATIONS. DISCHARGE PACKET GIVEN AND REVIEWED, QUESTIONS ANSWERED, AND PATIENT VERBALIZED UNDERSTANDING. MEDS FAXED TO [facility] TO FILL. STRESSED THE IMPORTANCE OF ATTENDING FOLLOW UP VISIT WITH PCP WELL CONTINUING ALL MEDICATIONS ON DISCHARGE LIST UNTIL FURTHER INSTRUCTED.
== END 2023-05-10 13:26 | disposition home or self-care (01) | DRG 291 ==
LOC: ER 17:44 → MEDS 19:44 → ENPENDDIS 05-10 13:24 → MEDS 05-10 13:26
PROVIDERS: Hospitalist; ADMIT Internal Medicine
DX: I11.0 Hypertensive heart disease with heart failure (principal); I50.33 Acute on chronic diastolic (congestive) heart failure; I25.10 Atherosclerotic heart disease of native coronary artery without angina pectoris; R79.1 Abnormal coagulation profile; N40.0 Benign prostatic hyperplasia without lower urinary tract symptoms; T45.526A Underdosing of antithrombotic drugs, initial encounter; E03.9 Hypothyroidism, unspecified; G25.81 Restless legs syndrome; I25.2 Old myocardial infarction; Z91.138 Patient's unintentional underdosing of medication regimen for other reason; Z95.5 Presence of coronary angioplasty implant and graft; Z79.890 Hormone replacement therapy; Z79.82 Long term (current) use of aspirin; Z79.02 Long term (current) use of antithrombotics/antiplatelets; Z79.52 Long term (current) use of systemic steroids; R07.9 Chest pain, unspecified
CPT/HCPCS: 36415; 71046; 71260; 80048; 80053; 83735; 83880; 84484; 85025; 85379; 93005; 93010; 96374-59; 97165; 99285-25; A9270; J1650; J1940; Q9967

== ENCOUNTER → 2023-05-08 | Outpatient (CLI) | payer MEDICARE ==
[~2023-05-08] MED LIST changes: +AMOCLA875 PO; +ATOR40TA PO; +AZIT500 PO; +CLOP75 PO; +FURO20 PO; +MELATONIN5 M1 PO; +METO25ER PO; +PRAM.5 PO; +PRED20 PO; +SPIR25 PO
[2023-05-08 15:28] LABS: BASOPHILS ABSOLUTE AUTO 0.05 K/mm3 (0.00-0.23); BASOPHILS PERCENT AUTO 1 % (0-2); EOSINOPHILS ABSOLUTE AUTO 0.11 K/mm3 (0.00-0.68); EOSINOPHILS PERCENT AUTO 2 % (0-6); Hematocrit 36.6 % (37.0-53.0); Hemoglobin 12.1 g/dL (13.5-17.5); IMMATURE GRAN ABSOLUTE AUTO 0.02 K/mm3 (0.00-0.10); IMMATURE GRAN PERCENT AUTO 0 % (0-1); LYMPHOCYTES ABSOLUTE AUTO 1.75 K/mm3 (0.84-5.20); LYMPHOCYTES PERCENT AUTO 29 % (21-46); MONOCYTES PERCENT AUTO 8 % (4-13); Mean Corpuscular HGB 30.9 pg (26.0-34.0); Mean Corpuscular HGB Conc 33.1 g/dL (31.5-36.5); Mean Corpuscular Volume 93 fL (80-100); Mean Platelet Volume 11.8 fL (9.1-12.4); NEUTROPHILS ABSOLUTE AUTO 3.55 K/mm3 (1.96-9.15); NEUTROPHILS PERCENT AUTO 59 % (41-73); Platelet Count 228 K/mm3 (150-400); RDW Coefficient Variation 13.9 % (11.7-14.2); Red Blood Cell Count 3.92 M/mm3 (4.30-5.90); White Blood Cell Count 5.98 K/mm3 (4.00-11.30)
[2023-05-08 15:38] LABS: Albumin, Blood 2.8 g/dL (3.4-5.0); Albumin/Globulin Ratio 0.7 (0.8-1.8); Bilirubin, Total 0.4 mg/dL (0.1-1.0); Bun/Creatinine Ratio 8.9 (12.0-20.0); Calcium, Blood 8.7 mg/dL (8.5-10.1); Creatinine, Blood 1.23 mg/dL (0.60-1.20); Globulin, Blood 3.9 g/dL (2.2-4.0); Potassium, Blood 3.7 mmol/L (3.5-5.5); Total Protein, Blood 6.7 g/dL (6.4-8.2)
== END ==
LOC: LAB 15:22 → LAB SHORT 15:22
PROVIDERS: Physician Assistant Surgical
DX: R07.9 Chest pain, unspecified (principal)
CPT/HCPCS: 80053; 83880; 84484; 85025; 85379

== ENCOUNTER → 2024-06-08 | Outpatient (CLI) | payer MEDICARE ==
[~2024-06-08] MED LIST changes: +MELATONIN5 M1 PO; +SPIR25 PO; +SYNTHROID100 M14 PO
[2024-06-08 11:21] LABS: BASOPHILS ABSOLUTE AUTO 0.04 K/mm3 (0.00-0.23); BASOPHILS PERCENT AUTO 0 % (0-2); EOSINOPHILS ABSOLUTE AUTO 0.04 K/mm3 (0.00-0.68); EOSINOPHILS PERCENT AUTO 0 % (0-6); Hematocrit 38.8 % (37.0-53.0); Hemoglobin 12.9 g/dL (13.5-17.5); IMMATURE GRAN ABSOLUTE AUTO 0.09 K/mm3 (0.00-0.10); IMMATURE GRAN PERCENT AUTO 1 % (0-1); LYMPHOCYTES ABSOLUTE AUTO 1.23 K/mm3 (0.84-5.20); LYMPHOCYTES PERCENT AUTO 9 % (21-46); MONOCYTES ABSOLUTE AUTO 1.02 K/mm3 (0.16-1.47); MONOCYTES PERCENT AUTO 8 % (4-13); Mean Corpuscular HGB 32.1 pg (26.0-34.0); Mean Corpuscular HGB Conc 33.2 g/dL (31.5-36.5); Mean Corpuscular Volume 97 fL (80-100); Mean Platelet Volume 13.4 fL (9.1-12.4); NEUTROPHILS PERCENT AUTO 82 % (41-73); Platelet Count 145 K/mm3 (150-400); Red Blood Cell Count 4.02 M/mm3 (4.30-5.90); White Blood Cell Count 13.62 K/mm3 (4.00-11.30)
[2024-06-08 11:35] LABS: Albumin, Blood 3.6 g/dL (3.4-5.0); Bilirubin, Total 1.2 mg/dL (0.1-1.0); Bun/Creatinine Ratio 11.9 (12.0-20.0); Calcium, Blood 8.7 mg/dL (8.5-10.1); Creatinine, Blood 1.43 mg/dL (0.60-1.20); Globulin, Blood 3.7 g/dL (2.2-4.0); Potassium, Blood 4.4 mmol/L (3.5-5.5); Total Protein, Blood 7.3 g/dL (6.4-8.2)
== END ==
LOC: LAB SHORT 11:12 → LAB 11:12
PROVIDERS: Family Medicine
DX: R06.02 Shortness of breath (principal); R50.9 Fever, unspecified
CPT/HCPCS: 80053; 83605; 85025

== ENCOUNTER → 2024-06-09 | Outpatient (CLI) | payer MEDICARE ==
[~2024-06-09] MED LIST changes: +AMIODARONE HCL400 M2 PO; +Amiodarone HCl200 MG PO; +ELIQUIS5 M2 PO; +JARDIANCE10 MG PO; +POTCHL20ER PO
[2024-06-09 11:24] LABS: BASOPHILS ABSOLUTE AUTO 0.04 K/mm3 (0.00-0.23); BASOPHILS PERCENT AUTO 0 % (0-2); EOSINOPHILS ABSOLUTE AUTO 0.03 K/mm3 (0.00-0.68); EOSINOPHILS PERCENT AUTO 0 % (0-6); Hematocrit 34.5 % (37.0-53.0); Hemoglobin 11.2 g/dL (13.5-17.5); IMMATURE GRAN ABSOLUTE AUTO 0.07 K/mm3 (0.00-0.10); IMMATURE GRAN PERCENT AUTO 1 % (0-1); LYMPHOCYTES ABSOLUTE AUTO 1.36 K/mm3 (0.84-5.20); LYMPHOCYTES PERCENT AUTO 12 % (21-46); MONOCYTES ABSOLUTE AUTO 0.83 K/mm3 (0.16-1.47); MONOCYTES PERCENT AUTO 8 % (4-13); Mean Corpuscular HGB 31.6 pg (26.0-34.0); Mean Corpuscular HGB Conc 32.5 g/dL (31.5-36.5); Mean Corpuscular Volume 98 fL (80-100); Mean Platelet Volume 12.9 fL (9.1-12.4); NEUTROPHILS ABSOLUTE AUTO 8.63 K/mm3 (1.96-9.15); NEUTROPHILS PERCENT AUTO 79 % (41-73); Platelet Count 127 K/mm3 (150-400); RDW Coefficient Variation 13.1 % (11.7-14.2); RDW Standard Deviation 47.1 fL (35.1-46.3); Red Blood Cell Count 3.54 M/mm3 (4.30-5.90); White Blood Cell Count 10.96 K/mm3 (4.00-11.30)
== END ==
LOC: LAB 11:20 → LAB SHORT 11:20
PROVIDERS: Physician Assistant Medical
DX: J18.9 Pneumonia, unspecified organism (principal); R53.83 Other fatigue
CPT/HCPCS: 85025

== ENCOUNTER 2024-06-10 13:15 | Observation (INO) | payer MEDICARE ==
[~2024-06-10] VITALS: Ht 167.6 cm; Wt 84.0 kg
[2024-06-10] VITALS (9 sets, daily range): BP systolic 106–131; BP diastolic 61–87
[~2024-06-10 13:15] MED LIST changes: -AMIODARONE HCL400 M2 PO; -Amiodarone HCl200 MG PO; -ELIQUIS5 M2 PO; -JARDIANCE10 MG PO; -POTCHL20ER PO; -SYNTHROID100 M14 PO
[2024-06-10] MEDS ORDERED: Diltiazem HCl 5 MG / ML 5ML Vial IV ONE ×2 (13:40→14:35)
[2024-06-10] MEDS ORDERED: SYNTHROID100 M14 PO ×2 (13:57)
[2024-06-10] MEDS ORDERED: FLU VACC TS2024-25(6MOS UP)/PF 45 MCG/0.5 ML SYRINGE IM SCH (15:00)
[2024-06-10] MEDS ORDERED: Furosemide 10 MG/ML 4ML Vial IV SCH (17:00)
[2024-06-10] MEDS ORDERED: CefTRIAXone Sodium 1,000 MG in NS 100 ML IV SCH (18:00)
--- NOTE | 2024-06-10 18:14 | NUR ---
PT SUMMARY; PT ARRIVED IN THE UNIT FROM [facility] VIA STRETCHER, TRANSFERRED VIA SLIDER SHEET. PT ALERT AND ORIENTED X4 AT THE BEDSIDE UPON ARRIVAL, DR NEGRETE CAME TO SEE PT WAS ABLE TO DISCUSS PLAN OF CARE WITH AT THE BEDSIDE. PLAN TO START PT ON CARDIZEM AND HEP GTT. TO CONTINUE ABO FOR PNA, AND TO DIURESE. PT AND AGREEABLE WITH THE PLAN. PT NOW EATING DINNER TOLOERATED WELL. USES URINAL FOR VOIDING CONTINENT OF BOTH BLADDER AND BOWEL. PT AMBULATORY AT BASELINE WITH NO USE OF ASSISTIVE DEVICE, CURRENTLY ON BED REST AT THIS TIME DUE TO AFIB RVR. PT INSTRUCTED USE OF CALL LIGHT, BED ALARM ON FOR SAFETY. PT NOW RESTING IN BED CALL LIGHTS IN REACH WILL REPORT TO ONCOMING SHIFT
[2024-06-10 18:26] LABS: Anti-Xa UFH, PHA Monitoring <0.10 IU/mL; International Normalized Ratio 1.12; Prothrombin Time Results 11.9 Sec (9.7-11.5)
[2024-06-10] MEDS ORDERED: Dose Adjust by Pharmacy XX STA (18:37)
[2024-06-10] MEDS ORDERED: Heparin Sodium 5000 Units/ML 1ML MDV IV ONE (18:40)
[2024-06-10] MEDS ORDERED: Heparin Sodium,Porcine/0.5 NS 500 ML IV SCH (18:40)
[2024-06-10 20:00] LABS: Influenza A, PCR NEGATIVE (NEGATIVE); Influenza B, PCR NEGATIVE (NEGATIVE); Resp Syncytial Virus, PCR NEGATIVE (NEGATIVE); SARS-Cov-2 (COVID-19) PCR, MMC NEGATIVE (NEGATIVE)
[2024-06-10] MEDS ORDERED: Gabapentin 300 MG Cap PO SCH (21:00)
[2024-06-10] MEDS ORDERED: Lactobacil 2-S.Thermo-Bifido 1 1 Cap PO SCH (21:00)
[2024-06-10] MEDS ORDERED: Melatonin 5 MG Tablet PO SCH (21:00)
[2024-06-10] MEDS ORDERED: Doxazosin Mesylate 2 MG Tab PO SCH (21:00)
[2024-06-11] VITALS (16 sets, daily range): BP systolic 94–139; BP diastolic 62–90
[2024-06-11 02:09] LABS: BASOPHILS ABSOLUTE AUTO 0.07 K/mm3 (0.00-0.23); BASOPHILS PERCENT AUTO 1 % (0-2); EOSINOPHILS ABSOLUTE AUTO 0.45 K/mm3 (0.00-0.68); EOSINOPHILS PERCENT AUTO 6 % (0-6); Hematocrit 33.6 % (37.0-53.0); Hemoglobin 11.3 g/dL (13.5-17.5); IMMATURE GRAN ABSOLUTE AUTO 0.02 K/mm3 (0.00-0.10); IMMATURE GRAN PERCENT AUTO 0 % (0-1); LYMPHOCYTES ABSOLUTE AUTO 2.04 K/mm3 (0.84-5.20); LYMPHOCYTES PERCENT AUTO 25 % (21-46); MONOCYTES ABSOLUTE AUTO 0.79 K/mm3 (0.16-1.47); MONOCYTES PERCENT AUTO 10 % (4-13); Mean Corpuscular HGB 31.8 pg (26.0-34.0); Mean Corpuscular HGB Conc 33.6 g/dL (31.5-36.5); Mean Corpuscular Volume 95 fL (80-100); Mean Platelet Volume 12.6 fL (9.1-12.4); NEUTROPHILS ABSOLUTE AUTO 4.87 K/mm3 (1.96-9.15); NEUTROPHILS PERCENT AUTO 59 % (41-73); Platelet Count 140 K/mm3 (150-400); RDW Coefficient Variation 12.7 % (11.7-14.2); RDW Standard Deviation 44.8 fL (35.1-46.3); Red Blood Cell Count 3.55 M/mm3 (4.30-5.90); White Blood Cell Count 8.24 K/mm3 (4.00-11.30)
[2024-06-11] MEDS ORDERED: Dose Adjust by Pharmacy XX STA ×3 (02:24→16:17)
[2024-06-11 02:27] LABS: Calcium, Blood 8.1 mg/dL (8.5-10.1); Creatinine, Blood 1.06 mg/dL (0.60-1.20); Potassium, Blood 3.3 mmol/L (3.5-5.5)
[2024-06-11] MEDS ORDERED: Enoxaparin 40 MG/0.4 ML SYR SC SCH (09:00)
[2024-06-11] MEDS ORDERED: Potassium Chloride 20 MEQ TabCR PO SCH (09:00)
[2024-06-11] MEDS ORDERED: Metoprolol Succinate 25 MG TABCR PO SCH ×2 (09:00→21:00)
[2024-06-11] MEDS ORDERED: Finasteride 5 MG Tab PO SCH (09:00)
[2024-06-11] MEDS ORDERED: Levothyroxine Sodium 0.1 MG Tab PO SCH (09:00)
[2024-06-11] MEDS ORDERED: Atorvastatin 40 MG Tab PO SCH (09:00)
[2024-06-11] MEDS ORDERED: Aspirin 81 MG Chew PO SCH (09:00)
[2024-06-11] MEDS ORDERED: Heparin Sodium 5000 Units/ML 1ML MDV IV ONE (09:10)
--- NOTE | 2024-06-11 14:20 | NUR ---
THIS RN RETURNED FROM LUNCH AT 1405. BREAK NURSE INFORMED THIS RN THAT CARDIZEM GTT BAG WAS FINISHED AND THAT A NEW BAG WAS BEING PREPARED. THIS RN TO PT'S ROOM TO SPIKE NEW CARDIZEM GTT BAG. PT HR NOTED TO BE AFIB 90-100'S. THIS RN CHECKED WITH [employer] FOR RECENT HR TREND. HR 90-100'S SINCE ROUGHLY 1300. UNEMPLOYMENT BENEFITS CLAIMS TAKER NOTIFIED THAT CARDIZEM BAG WILL BE ON STANDBY. ASSET RECOVERY SPECIALIST NOTIFIED. WILL NOTIFY PRIMARY RN.
[2024-06-11] MEDS ORDERED: Metoprolol Tartrate 1 MG/ML 5 ML VIAL IV PRN (15:30)
[2024-06-11] MEDS ORDERED: Digoxin 0.25 MG/ML 2ML Amp IV ONE (19:15)
[2024-06-11] MEDS ORDERED: Potassium Chloride 20 MEQ TabCR PO ONE (19:15)
--- NOTE | 2024-06-11 19:20 | NUR ---
SHIFT SUMMARY PATIENT A0X4 ABLE TO MAKE NEEDS KNOWN AND STATES NO PAIN. HE IS ON A HEPAIN GTT AND A DILTIAZEM GTT. AT 1420 THE CARDIZEM GTT WAS PUT ON HOLD BY THE HOSPITALIST BECAUSE THE HR WAS IN THE 90'S AND LOW 100'S AND WAS INFORMED TO CALL HER IF THE IT GOES ABOVE 130. AWAITING THE SOLICITOR PATENT ORDERS. THE PATIENT WAS UP OUT OF BED WITH MEALS AND ABLE TO WALK TO THE BATROOM WITH ASSISSTANCE.
[2024-06-11 19:56] LABS: Bun/Creatinine Ratio 15.7 (12.0-20.0); Calcium, Blood 8.8 mg/dL (8.5-10.1); Creatinine, Blood 1.34 mg/dL (0.60-1.20); Magnesium, Blood 2.2 mg/dL (1.6-2.4); Potassium, Blood 3.8 mmol/L (3.5-5.5)
--- NOTE | 2024-06-11 20:53 | NUR ---
ASSUMED CARE OF THIS PT AT 1900. PT IS A+O X4 ABLE TO MAKE NEEDS KNOWN, USES CALL LIGHT. SITTING UP IN BED DURING BEDSIDE SHIFT REPORT. VSS, RA SATTING 96%. DENIES CHEST PAIN OR PRESSURE. FRESH ICE WATER PROVIDED DENIES ANY OTHER NEEDS AT THIS TIME. TOOK NOC MEDS WHOLE W/ WATER. CALL LIGHT IN REACH, WILL CONTINUE W/ PLAN OF CARE.
[2024-06-11] MEDS ORDERED: Potassium Chloride 10 Meq Tablet SA PO ONE (21:30)
--- NOTE | 2024-06-11 22:37 | NUR ---
NURSE NOTE PRN LOPRESSOR GIVEN PER EMAR ORDERS.
[2024-06-12 04:01] VITALS: BP 119/76
[2024-06-12 04:35] LABS: BASOPHILS ABSOLUTE AUTO 0.06 K/mm3 (0.00-0.23); BASOPHILS PERCENT AUTO 1 % (0-2); EOSINOPHILS ABSOLUTE AUTO 0.48 K/mm3 (0.00-0.68); EOSINOPHILS PERCENT AUTO 6 % (0-6); Hematocrit 35.9 % (37.0-53.0); Hemoglobin 12.3 g/dL (13.5-17.5); IMMATURE GRAN ABSOLUTE AUTO 0.03 K/mm3 (0.00-0.10); IMMATURE GRAN PERCENT AUTO 0 % (0-1); LYMPHOCYTES ABSOLUTE AUTO 1.89 K/mm3 (0.84-5.20); LYMPHOCYTES PERCENT AUTO 25 % (21-46); MONOCYTES ABSOLUTE AUTO 0.68 K/mm3 (0.16-1.47); MONOCYTES PERCENT AUTO 9 % (4-13); Mean Corpuscular HGB 32.1 pg (26.0-34.0); Mean Corpuscular HGB Conc 34.3 g/dL (31.5-36.5); Mean Corpuscular Volume 94 fL (80-100); Mean Platelet Volume 12.2 fL (9.1-12.4); NEUTROPHILS ABSOLUTE AUTO 4.46 K/mm3 (1.96-9.15); NEUTROPHILS PERCENT AUTO 59 % (41-73); Platelet Count 174 K/mm3 (150-400); RDW Coefficient Variation 12.6 % (11.7-14.2); RDW Standard Deviation 43.4 fL (35.1-46.3); Red Blood Cell Count 3.83 M/mm3 (4.30-5.90)
[2024-06-12 04:54] LABS: Bun/Creatinine Ratio 16.5 (12.0-20.0); Calcium, Blood 8.7 mg/dL (8.5-10.1); Creatinine, Blood 1.09 mg/dL (0.60-1.20); Magnesium, Blood 2.2 mg/dL (1.6-2.4)
--- NOTE | 2024-06-12 05:26 | NUR ---
SHIFT SUMMARY PT IS A+O X4, ABLE TO MAKE NEEDS KNOWN, COOPERATIVE WITH CARES, USES CALL LIGHT. MALE PURWICK REMAINS IN PLACE W/ GOOD OUTPUT THROUGHTOUT THE NIGHT. PATIENT WAS ABLE TO REST ON AND OFF DURING THE NIGHT. HEP OFF PER ORDERS, PRN LOPRESSOR GIVEN (SEE EMAR). BP STABLE, HR IRREGULR 100-130s AFIB ON THE MONITOR. DENIES CHEST PAIN OR PRESSURE. DENIES PAIN OF ANY KIND. RA SATTING ABOVE 94% WITH SPOT CHECKS, BREATHING EVEN AND UNLABORED. BED IN LOWEST POSTION, CALL LIGHT IN REACH, WILL CONTINUE WITH PLAN OF CARE AND REPORT TO ONCOMING RN.
--- NOTE | 2024-06-12 07:44 | NUR ---
The Local NOTIFIED THIS RN THAT PT HR BRIEFLY UP TO 15O. THIS RN TO PT ROOM TO ASSESS. PT ASYMPTOMATIC, NO CHEST PAIN/PRESSURE, SOB, DIZZINESS. PT HR BACK DOWN TO 100-120'S. PRIMARY RN ALSO TO PT ROOM AND UPDATED.
[2024-06-12 07:57] VITALS: BP 104/74
[2024-06-12] MEDS ORDERED: Metoprolol Succinate 50 MG TABCR PO SCH (09:00)
[2024-06-12] MEDS ORDERED: Apixaban 5 MG Tab PO SCH (09:00)
[2024-06-12] MEDS ORDERED: Torsemide 20 MG TAB PO SCH (09:00)
[2024-06-12] MEDS ORDERED: Empagliflozin 10 MG TAB PO SCH (09:00)
[2024-06-12] MEDS ORDERED: Amiodarone HCl 200 MG Tab PO SCH (09:50)
[2024-06-12 12:28] VITALS: BP 110/81
[2024-06-12 16:33] VITALS: BP 112/96
--- NOTE | 2024-06-12 18:19 | NUR ---
SHIFT SUMMARY PT IS A+O X4, ABLE TO MAKE NEEDS KNOWN, COOPERATIVE WITH CARES, USES CALL LIGHT. AMIODARONE STARTED BY ALCOHOL AND DRUG COUNSELOR. PRN LOPRESSOR GIVEN (SEE EMAR). BP STABLE, HR IRREGULR 100-130s AFIB ON THE MONITOR. DENIES CHEST PAIN OR PRESSURE. DENIES PAIN OF ANY KIND. RA SATTING ABOVE 94% WITH SPOT CHECKS, BREATHING EVEN AND UNLABORED. BED IN LOWEST POSTION, CALL LIGHT IN REACH, WILL CONTINUE WITH PLAN OF CARE AND REPORT TO ONCOMING RN.
[2024-06-12 19:21] VITALS: BP 103/72
--- NOTE | 2024-06-12 20:45 | NUR ---
ASSUMED CARE OF THIS PATIENT AT 1900. PT IS ALERT SITTING UP IN BED WATCHING TV. PT EXPRESSED TO THIS RN WANTING TO HAVE A BED BATH AND MALE PURWICK PLACED FOR PROMOTION OF REST TONIGHT. BED BATH AND LIEN CHANGE PROVIDED, MALE PURWICK PLACED DRAINING TO LOW INTERMIT SUCTION. BP STABLE, DENIES CHEST PAIN OR PRESSURE. HR RATE IN THE 100s WHILE CARE WAS BEING PROVIDED. EVENING MEDICATIONS GIVEN, BED IN LOWEST POSTION, CALL LIGHT IN REACH.
[2024-06-12 23:31] VITALS: BP 103/87
--- NOTE | 2024-06-13 02:42 | NUR ---
NURSE NOTE PT CONVERTED TO SINUS RHYTHM AT 0222 W/ A RATE IN THE 60s.
[2024-06-13 03:44] VITALS: BP 115/58
[2024-06-13 04:42] LABS: BASOPHILS ABSOLUTE AUTO 0.05 K/mm3 (0.00-0.23); BASOPHILS PERCENT AUTO 1 % (0-2); EOSINOPHILS ABSOLUTE AUTO 0.37 K/mm3 (0.00-0.68); EOSINOPHILS PERCENT AUTO 5 % (0-6); Hematocrit 39.9 % (37.0-53.0); Hemoglobin 13.5 g/dL (13.5-17.5); IMMATURE GRAN ABSOLUTE AUTO 0.03 K/mm3 (0.00-0.10); IMMATURE GRAN PERCENT AUTO 0 % (0-1); LYMPHOCYTES ABSOLUTE AUTO 1.81 K/mm3 (0.84-5.20); LYMPHOCYTES PERCENT AUTO 22 % (21-46); MONOCYTES PERCENT AUTO 9 % (4-13); Mean Corpuscular HGB 31.8 pg (26.0-34.0); Mean Corpuscular HGB Conc 33.8 g/dL (31.5-36.5); Mean Corpuscular Volume 94 fL (80-100); Mean Platelet Volume 12.4 fL (9.1-12.4); NEUTROPHILS ABSOLUTE AUTO 5.27 K/mm3 (1.96-9.15); NEUTROPHILS PERCENT AUTO 64 % (41-73); Platelet Count 207 K/mm3 (150-400); RDW Coefficient Variation 12.6 % (11.7-14.2); RDW Standard Deviation 43.1 fL (35.1-46.3); Red Blood Cell Count 4.25 M/mm3 (4.30-5.90); White Blood Cell Count 8.23 K/mm3 (4.00-11.30)
[2024-06-13 04:59] LABS: Bun/Creatinine Ratio 17.6 (12.0-20.0); Calcium, Blood 9.1 mg/dL (8.5-10.1); Creatinine, Blood 1.48 mg/dL (0.60-1.20); Potassium, Blood 4.2 mmol/L (3.5-5.5)
--- NOTE | 2024-06-13 05:23 | NUR ---
SHIFT SUMMARY PT IS A+O X4, ABLE TO MAKE NEEDS KNOWN USES CALL LIGHT. PT IS COOPERATIVE WITH CARES. RA SATTING ABOVE 96% ON SPOT CHECKS. PT REMAINS IN SINUS RHYTHM RATE IN THE 70s, DENIES CHEST PAIN OR PRESSURE. BP STABLE. MALE PURWICK IN PLACE, PT WILL USE URINAL IN BED OR AT BEDSIDE WHILE AWAKE. PT WAS ABLE TO REST COMFORTABLY ON AND OFF MOST OF THE NIGHT. DENIES PAIN OF ANY KIND. BED IN LOWEST POSTION, CALL LIGHT IN REACH. WILL CONTINUE WITH PLAN OF CARE AND REPORT TO ON COMING RN.
[2024-06-13] MEDS ORDERED: Metoprolol Succinate 25 MG TABCR PO SCH (09:00)
[2024-06-13 09:10] VITALS: BP 105/59
[2024-06-13] MEDS ORDERED: AMIODARONE HCL400 M2 PO ×2 (12:41)
[2024-06-13] MEDS ORDERED: Amiodarone HCl200 MG PO ×2 (12:41)
[2024-06-13] MEDS ORDERED: JARDIANCE10 MG PO ×2 (12:42)
[2024-06-13] MEDS ORDERED: ELIQUIS5 M2 PO ×2 (12:42)
[2024-06-13] MEDS ORDERED: POTCHL20ER PO ×2 (12:42)
[2024-06-13 12:49] VITALS: BP 94/60
--- NOTE | 2024-06-13 13:43 | NUR ---
Discharge note. Pt discharged home. A large amount of cardiac education was given to and Pt. VSS on discharge. All questions were answered. Pt discharged with all belongings. Escorted to the exit with staff.
[2024-06-16] MEDS ORDERED: Amiodarone HCl 200 MG Tab PO SCH (09:00)
== END 2024-06-13 13:35 | disposition home or self-care (01) ==
LOC: ER 13:15 → PCU 13:16
PROVIDERS: Family Medicine; ADMIT Family Medicine
DX: I48.0 Paroxysmal atrial fibrillation (principal); D69.6 Thrombocytopenia, unspecified; E87.6 Hypokalemia; I13.0 Hypertensive heart and chronic kidney disease with heart failure and stage 1 through stage 4 chronic kidney disease, or unspecified chronic kidney disease; I50.43 Acute on chronic combined systolic (congestive) and diastolic (congestive) heart failure; N18.30 Chronic kidney disease, stage 3 unspecified; J18.9 Pneumonia, unspecified organism; I35.0 Nonrheumatic aortic (valve) stenosis; D64.9 Anemia, unspecified; R25.1 Tremor, unspecified; E03.9 Hypothyroidism, unspecified; N40.0 Benign prostatic hyperplasia without lower urinary tract symptoms; E78.5 Hyperlipidemia, unspecified; J90 Pleural effusion, not elsewhere classified; R59.0 Localized enlarged lymph nodes; I25.10 Atherosclerotic heart disease of native coronary artery without angina pectoris; Z95.5 Presence of coronary angioplasty implant and graft; Z79.82 Long term (current) use of aspirin; Z79.890 Hormone replacement therapy; Z79.899 Other long term (current) drug therapy
CPT/HCPCS: 0241U; 36415; 71046; 71260; 80048; 83735; 83880; 84145; 84443; 84484; 85025; 85520; 85610; 85730; 93005; 93010; 93306; 96365; 96366; 96374; 96375; 96376; 99285-25; A9270; G0378; J0696; J1160; J1644; J1940; Q9967

== ENCOUNTER → 2024-06-10 | Outpatient (CLI) | payer MEDICARE ==
[2024-06-10 12:27] LABS: BASOPHILS ABSOLUTE AUTO 0.04 K/mm3 (0.00-0.23); BASOPHILS PERCENT AUTO 0 % (0-2); EOSINOPHILS ABSOLUTE AUTO 0.21 K/mm3 (0.00-0.68); EOSINOPHILS PERCENT AUTO 2 % (0-6); Hematocrit 35.4 % (37.0-53.0); Hemoglobin 11.7 g/dL (13.5-17.5); IMMATURE GRAN ABSOLUTE AUTO 0.04 K/mm3 (0.00-0.10); IMMATURE GRAN PERCENT AUTO 0 % (0-1); LYMPHOCYTES ABSOLUTE AUTO 1.16 K/mm3 (0.84-5.20); LYMPHOCYTES PERCENT AUTO 13 % (21-46); MONOCYTES ABSOLUTE AUTO 0.95 K/mm3 (0.16-1.47); MONOCYTES PERCENT AUTO 11 % (4-13); Mean Corpuscular HGB 31.5 pg (26.0-34.0); Mean Corpuscular HGB Conc 33.1 g/dL (31.5-36.5); Mean Corpuscular Volume 95 fL (80-100); NEUTROPHILS ABSOLUTE AUTO 6.67 K/mm3 (1.96-9.15); NEUTROPHILS PERCENT AUTO 74 % (41-73); Platelet Count 130 K/mm3 (150-400); RDW Standard Deviation 44.7 fL (35.1-46.3); Red Blood Cell Count 3.72 M/mm3 (4.30-5.90); White Blood Cell Count 9.07 K/mm3 (4.00-11.30)
[2024-06-10 12:34] LABS: Albumin, Blood 2.9 g/dL (3.4-5.0); Albumin/Globulin Ratio 0.8 (0.8-1.8); Bun/Creatinine Ratio 10.3 (12.0-20.0); Calcium, Blood 8.7 mg/dL (8.5-10.1); Creatinine, Blood 1.16 mg/dL (0.60-1.20); Globulin, Blood 3.7 g/dL (2.2-4.0); Potassium, Blood 4.1 mmol/L (3.5-5.5); Total Protein, Blood 6.6 g/dL (6.4-8.2)
== END ==
LOC: LAB SHORT 12:20 → LAB 12:20
PROVIDERS: Chiropractor
DX: J18.9 Pneumonia, unspecified organism (principal)
CPT/HCPCS: 80053; 84484; 85025; 85379